=== PATIENT | female | born 1935 | race African-American/Black ===

== ENCOUNTER 2017-06-15 10:56 | Outpatient (CLI) | payer MEDICARE, OTHER ==
--- NOTE | 2017-06-15 17:46 | Mammography Report ---
SCREENING MAMMOGRAM: 06/15/2017 CLINICAL INDICATION: An 82-year-old with a personal history of left breast cancer, status post mastectomy and chemoradiation, history of late childbearing, for screening. TECHNIQUE: Right CC and MLO views were obtained. COMPARISON: 05/2013, 04/2012, 04/2011, 03/2010. FINDINGS: The right breast again demonstrates heterogeneously dense fibroglandular parenchyma. Coarse, typically benign calcifications are present. Intramammary lymph nodes are stable. No suspicious masses, clustered microcalcifications, or regions of architectural distortion are identified. IMPRESSION: BENIGN FINDINGS. RECOMMENDATION: Routine annual screening unless otherwise clinically indicated. BI-RADS CATEGORY 2 BENIGN FINDINGS. STANDARD QUALIFYING STATEMENTS: 1. This examination was reviewed with the aid of Computer-Aided Detection (CAD). 2. A negative or benign imaging report should not delay biopsy if clinically suspicious findings are present. Consider surgical consultation if warranted. More than 5% of cancers are not identified by imaging. 3. Dense breasts may obscure an underlying neoplasm. TD: 06/15/2017 17:45
== END 2017-06-15 10:57 | disposition home or self-care (01) ==
LOC: DI.N 10:56
PROVIDERS: ATTEND Family Medicine
DX: Z12.31 Encounter for screening mammogram for malignant neoplasm of breast (principal)

== ENCOUNTER 2017-11-07 13:52 | Emergency (ER) | payer MEDICARE, OTHER ==
[2017-11-07 13:59] VITALS: BP 152/97
--- NOTE | 2017-11-07 14:55 | XRAY Report ---
Reason: fall/pain Procedure Date: 11/07/2017 Accession Number: [id number] / [id number] Procedure: XR - Elbow 3 View RT CPT Code: FULL RESULT: EXAM: RIGHT ELBOW RADIOGRAPHY EXAM DATE: 11/07/2017 02:40 PM. CLINICAL HISTORY: Fall/pain. COMPARISON: None. TECHNIQUE: 3 views. FINDINGS: Bones: Normal. No fractures or bone lesions. Joints: Normal. No effusion. No subluxation. Soft Tissues: Normal. No soft tissue swelling. IMPRESSION: No acute fracture or dislocation. RADIA
--- NOTE | 2017-11-07 15:44 | ED Physician Documentation ---
History of Present Illness - Stated complaint Stated Complaint: R ARM INJ - Chief complaint Chief Complaint: Ext Problem - Additonal information Additional information: hx from pt 82 f falls freq - has ataxia fell last week hurt R elbow still painful no head neck chest abd hip injury with this fall Review of Systems Skin: denies: Laceration (s) Musculoskeletal: reports: Joint pain. denies: Neck pain Neurologic: denies: Headache, Head injury PD PAST MEDICAL HISTORY - Past Medical History Cardiovascular: Hypertension Respiratory: None Neuro: None Endocrine/Autoimmune: Type 2 diabetes GI: None [employer] REPAIRER: Breast cancer : None HEENT: None Psych: None Musculoskeletal: Other Derm: None Other Past Medical History: Cerebellar ataxia - Past Surgical History Past Surgical History: Yes General: Colonoscopy HEENT: Tonsil/Adenoidectomy - Present Medications Home Medications: Ambulatory Orders Medication Instructions Recorded Confirmed Metoprolol Tartrate 0 mg ORAL BID 04/22/15 04/22/15 metFORMIN [Glucophage] 500 mg ORAL BID 04/22/15 04/22/15 Hydrocodone/Acetaminophen 1 - 2 each PO Q6H PRN #14 tablet 01/17/16 [Hydrocodon-Acetaminophen 5-325] Losartan Potassium 1 tab PO DAILY 11/07/17 11/07/17 - Allergies Allergies/Adverse Reactions: Allergies Allergy/AdvReac Type Severity Reaction Status Date / Time No Known Drug Allergies Allergy Verified 11/07/17 13:59 - Social History Does the pt smoke?: No Smoking Status: Never smoker Does the pt drink ETOH?: No Does the pt have substance abuse?: No - Immunizations Immunizations are current?: Yes Immunizations: TDAP >10years/unknown, Other immun not current - POLST Patient has POLST: No PD ED PE NORMAL - Vitals Vital signs reviewed: Yes - General General: Alert and oriented X 3 - HEENT HEENT: Atraumatic - Cardiac Cardiac: RRR - Respiratory Respiratory: No respiratory distress - Extremities Extremities: Other (R elbow s deformity, TTP over olecranon, able to flex extend supinate pronate, shoulder FA NT wrist mildly TTP (from a prior fall, already imaged and improving per pt), MSV intact) Results - Vitals Vitals: Vital Signs - 24 hr 11/07/17 13:55 Temperature 36 C L Heart Rate 75 Respiratory 20 Rate Blood Pressure 152/97 H O2 Saturation 99 Oxygen O2 Source Room air - Rads (name of study) elbow Radiology: See rad report (no fx) PD MEDICAL DECISION MAKING - Sepsis Event Vital Signs: Vital Signs - 24 hr 11/07/17 13:55 Temperature 36 C L Heart Rate 75 Respiratory 20 Rate Blood Pressure 152/97 H O2 Saturation 99 Oxygen O2 Source Room air Departure - Departure Disposition: Home, Self Care Clinical Impression: Elbow contusion Qualifiers: Encounter type: initial encounter Laterality: right Qualified Code(s): S50.01XA - Contusion of right elbow, initial encounter Condition: Good Follow-Up: Nba You MD [Primary Care Provider] - Comments: Thankfully the xray does not show a fracture Recommend ice and tylenol as needed for the pain
== END 2017-11-07 15:50 | disposition home or self-care (01) ==
LOC: ED 13:52
DX: S50.01XA Contusion of right elbow, initial encounter (principal); I10 Essential (primary) hypertension; R27.0 Ataxia, unspecified; E11.9 Type 2 diabetes mellitus without complications; W19.XXXA Unspecified fall, initial encounter; Z91.81 History of falling
CPT/HCPCS: 99282; 99283